=== PATIENT | female | born 1945 | race Caucasian/White ===

== ENCOUNTER 2018-05-15 13:43 | Emergency (ER) | payer MEDICARE ==
--- NOTE | 2018-05-15 14:16 | ED Physician Documentation ---
PD HPI URI - Stated complaint Stated Complaint: COUGH/CHILLS/CONGESTION - Chief complaint Chief Complaint: General - History obtained from History obtained from: Patient - History of Present Illness Timing - onset: How many weeks ago (1) Timing duration: Weeks (1) Timing details: Gradual onset, Still present Associated symptoms: Fever, Nasal congestion, Productive cough, Chest pain, Dyspnea. No: Bilateral edema Contributing factors: Sick contact (Her had upper respiratory infection and diagnosed with pneumonia started on antibiotics just a couple of days ago. She has similar symptoms.). No: COPD / asthma Improves by: No: Medication (She is using Mucinex without any improvement.) Similar symptoms before: Has not had sx before Recently seen: Not recently seen Review of Systems Constitutional: reports: Fever, Chills Nose: reports: Congestion Throat: denies: Sore throat Cardiac: denies: Chest pain / pressure Respiratory: reports: Dyspnea, Cough, Wheezing GI: denies: Nausea, Vomiting, Diarrhea Skin: denies: Rash Musculoskeletal: denies: Extremity swelling PD PAST MEDICAL HISTORY - Past Medical History Cardiovascular: Congestive heart failure, Hypertension, High cholesterol Respiratory: Shortness of breath Endocrine/Autoimmune: Type 2 diabetes GI: None : None HEENT: None Psych: None Musculoskeletal: None Derm: None - Past Surgical History General: Cholecystectomy HEENT: Tonsil/Adenoidectomy - Present Medications Home Medications: Ambulatory Orders Medication Instructions Recorded Confirmed Insulin Glargine,Hum.rec.anlog 46 unit SQ ACHS 05/15/14 05/15/14 [Lantus Solostar] Levothyroxine [Synthroid] 0.137 mcg PO QDAC 05/15/14 05/15/14 Lisinopril 20 mg PO DAILY 05/15/14 05/15/14 Naproxen [Naprosyn] 250 mg PO PRN 05/15/14 05/15/14 Pravastatin Sodium 40 mg PO DAILY 05/15/14 05/15/14 Albuterol Sulf [Ventolin Hfa 1 - 2 puffs INH Q4HR PRN #1 inhaler 05/15/18 Inhaler] Benzonatate [Tessalon Perle] 100 mg PO TID PRN #30 capsule 05/15/18 Cephalexin [Keflex] 500 mg PO TID #21 capsule 05/15/18 Dexamethasone [Decadron] 4 mg PO DAILY #5 tablet 05/15/18 - Allergies Allergies/Adverse Reactions: Allergies Allergy/AdvReac Type Severity Reaction Status Date / Time loratadine [From Claritin] Allergy Hives Verified 05/15/18 14:31 Sulfa (Sulfonamide Allergy Rash Verified 05/15/18 14:31 Antibiotics) meperidine HCl * AdvReac Nausea Verified 05/15/18 14:31 [From Demerol] PD ED PE NORMAL - Vitals Vital signs reviewed: Yes - General General: Alert and oriented X 3, No acute distress, Well developed/nourished - HEENT HEENT: Ears normal, Moist mucous membranes, Pharynx benign - Neck Neck: Supple, no meningeal sign, No adenopathy - Cardiac Cardiac: RRR, No murmur - Respiratory Respiratory: Clear bilaterally - Abdomen Abdomen: Soft, Non tender - Derm Derm: Normal color, Warm and dry - Extremities Extremities: No edema, No calf tenderness / cord - Neuro Neuro: Alert and oriented X 3, No motor deficit, Normal speech Results - Vitals Vitals: Vital Signs - 24 hr 05/15/18 05/15/18 13:50 15:09 Temperature 36.2 C L 36.2 C L Heart Rate 65 57 L Respiratory 20 16 Rate Blood Pressure 176/60 H 148/63 H O2 Saturation 95 96 Oxygen O2 Source Room air - Rads (name of study) chest xray Radiology: Prelim report reviewed (no infiltrates; has peribronchial cuffing c/w bronchitis. ), EMP read contemporaneously PD MEDICAL DECISION MAKING - ED course Complexity details: reviewed results, considered differential, d/w patient Departure - Departure Disposition: 01 Home, Self Care Clinical Impression: Lower respiratory infection (e.g., bronchitis, pneumonia, pneumonitis, pulmonitis) Condition: Stable Record reviewed to determine appropriate education?: Yes Instructions: ED Upper Resp Infec Abx Tx Follow-Up: Jackie Hays PA [Primary Care Provider] - Prescriptions: Albuterol Sulf [Ventolin Hfa Inhaler] 1 - 2 puffs INH Q4HR PRN #1 inhaler PRN Reason: Shortness Of Air/Wheezing Benzonatate [Tessalon Perle] 100 mg PO TID PRN #30 capsule PRN Reason: Cough Cephalexin [Keflex] 500 mg PO TID #21 capsule Dexamethasone [Decadron] 4 mg PO DAILY #5 tablet Comments: Stay well-hydrated. Use albuterol inhaler 2-3 puffs 4 times a day for the next 7-10 days. Add Tessalon if needed for cough. This may likely be viral or at least initially is but concern for some bacterial component now. Add cephalexin 3 times a day for a week for that. Recheck if not improving over the next few days. If you are not improving well in the next couple of days you could also consider adding Decadron steroid for inflammation of the airways. This may elevate your sugars more than would like and so do not start it initially but see how you do after a few days with the other medicines and add it if not improved well. Discharge Date/Time: 05/15/18 15:14
--- NOTE | 2018-05-15 14:29 | XRAY Report ---
Reason: cough Procedure Date: 05/15/2018 Accession Number: [id number] / [id number] Procedure: XR - Chest 2 View X-Ray CPT Code: 08684 FULL RESULT: EXAM: CHEST RADIOGRAPHY EXAM DATE: 05/15/2018 02:20 PM. CLINICAL HISTORY: Cough. COMPARISON: None. TECHNIQUE: 2 views. FINDINGS: Lungs/Pleura: Patchy regions of peripheral reticular opacities present in the right mid chest and lateral left lower chest, possibly chronic scarring. No convincing acute consolidation, effusions or edema. Mild perihilar bronchial wall thickening present. Mild bilateral pleural thickening about the lateral chest wall noted. Mediastinum: Heart and mediastinal contours are unremarkable. Other: None. IMPRESSION: 1. Perihilar bronchial wall thickening could be acute or chronic and secondary to reactive airways disease, viral pneumonia or other bronchitis. 2. Right mid chest and left basilar reticular opacities most suggestive of chronic scarring. 3. No focal consolidation. RADIA
[2018-05-15] MEDS ORDERED: cephALEXin 250 MG CAPSULE PO STA (14:51)
[2018-05-15] MEDS ORDERED: BENZONATATE 100 MG CAPSULE PO STA (14:51)
[2018-05-15 15:12] VITALS: BP 148/63
== END 2018-05-15 15:14 | disposition home or self-care (01) ==
LOC: ED 13:43
DX: J22 Unspecified acute lower respiratory infection (principal); I11.0 Hypertensive heart disease with heart failure; I50.9 Heart failure, unspecified; E11.9 Type 2 diabetes mellitus without complications; Z79.4 Long term (current) use of insulin
CPT/HCPCS: 71046; 99283; A9270

== ENCOUNTER 2021-06-18 10:05 | Outpatient (CLI) | payer MEDICARE ==
[2021-06-18 15:24] LABS: THYROID STIMULATING HORMONE 1.53 uIU/mL (0.34-5.60)
== END 2021-06-18 10:06 | disposition home or self-care (01) ==
LOC: LAB.S 10:05
PROVIDERS: ATTEND Nurse Practitioner Family
DX: E03.9 Hypothyroidism, unspecified (principal)
CPT/HCPCS: 36415; 84443

== ENCOUNTER 2023-01-25 08:44 | Outpatient (CLI) | payer MEDICARE ==
--- NOTE | 2023-01-25 12:00 | XRAY Report ---
PROCEDURE: Lumbar Spine 2 View INDICATIONS: SCIATICA, RIGHT SIDE TECHNIQUE: 3 views of the lumbar spine were acquired. COMPARISON: None. FINDINGS: Bones: 5 [id number] vertebrae are present. Diffusely decreased osseous mineralization. Levocurv ature of the lumbar spine. Grade 1 anterolisthesis of L4 on L5. There are multilevel degenerative elsie nges of the lumbar spine with facet arthropathy and disc height loss with degenerative endplate soria es and marginal spurring. No vertebral body compression fractures. No suspicious bony lesions. Soft tissues: Overlying bowel gas pattern is normal. No suspicious soft tissue calcifications. Ath erosclerotic vascular calcifications. Right upper quadrant surgical clips. IMPRESSION: Multilevel degenerative changes of the lumbar spine. Diffusely decreased osseous mineral ization. Reviewed by: Clovis Higginbotham MD on 01/25/2023 11:59 AM PST Approved by: Clovis Higginbotham MD on 01/25/2023 11:59 AM PST Station ID: [id number]
== END 2023-01-25 08:45 | disposition home or self-care (01) ==
LOC: DI.S 08:44
PROVIDERS: ATTEND Nurse Practitioner Family
DX: M54.31 Sciatica, right side (principal); M47.816 Spondylosis without myelopathy or radiculopathy, lumbar region; M85.88 Other specified disorders of bone density and structure, other site

== ENCOUNTER 2023-02-01 17:42 | Outpatient (CLI) | payer MEDICARE | END 2023-02-01 23:59 | disposition EMS.NT | LOC: EMS 17:42 | DX: S61.412A Laceration without foreign body of left hand, initial encounter (principal); W26.8XXA Contact with other sharp object(s), not elsewhere classified, initial encounter ==

== ENCOUNTER 2023-02-01 18:37 | Emergency (ER) | payer MEDICARE ==
[2023-02-01] MEDS ORDERED: BUFFERED LIDOCAINE 10 ML SYRINGE SUBQ STA (20:11)
--- NOTE | 2023-02-01 21:00 | ED Physician Documentation ---
PD HPI UPPER EXT INJURY - Stated complaint Stated Complaint: LT HAND LAC - Chief complaint Chief Complaint: Laceration - History obtained from History obtained from: Patient - History of Present Illness Location: Left, Hand Type of injury: Blunt / blow Where injury occurred: Home Timing - onset: Today Timing - duration: Minutes Timing - details: Abrupt onset, Still present Improved by: Rest, Dressing Worsened by: Moving, Palpating Associated symptoms: No: Weakness, Numbness, Tingling, Swelling, Discolored Contributing factors: No: Anticoagulated, Prior ortho surgery Similar symptoms before: Diagnosis (laceration) Recently seen: Not recently seen - Additonal information Additional information: Michelle Johnson is a 77-year-old female with a pacemaker in place who was at her chair getting ready to feed her dog leftovers when the dog made a sudden movement she moved her hand out of the way quickly and lacerated it on the dorsum of her hand from sharp edges underneath her tray. She has thin skin and comes in with a stellate laceration to the dorsum of the hand. She has been able to control bleeding with a dressing placed by EMS. Review of Systems Constitutional: denies: Fever Ears: denies: Ear pain Nose: denies: Congestion Throat: denies: Sore throat Respiratory: denies: Cough GI: denies: Vomiting Skin: reports: Laceration (s) PD PAST MEDICAL HISTORY - Past Medical History Past Medical History: Yes Cardiovascular: Congestive heart failure, Hypertension, High cholesterol Respiratory: Shortness of breath Neuro: None Endocrine/Autoimmune: Type 2 diabetes GI: None [employer] MET[employer] FITTER: None : None HEENT: None Psych: None Musculoskeletal: None Derm: None - Past Surgical History Past Surgical History: Yes General: Cholecystectomy HEENT: Tonsil/Adenoidectomy - Present Medications Home Medications: Ambulatory Orders Medication Instructions Recorded Confirmed Insulin Glargine,Hum.rec.anlog 46 unit SQ ACHS 05/15/14 05/15/14 [Lantus Solostar] Levothyroxine [Synthroid] 0.137 mcg PO QDAC 05/15/14 05/15/14 Lisinopril 20 mg PO DAILY 05/15/14 05/15/14 Naproxen [Naprosyn] 250 mg PO PRN 05/15/14 05/15/14 Pravastatin Sodium 40 mg PO DAILY 05/15/14 05/15/14 Albuterol Sulf [Ventolin Hfa 1 - 2 puffs INH Q4HR PRN #1 inhaler 05/15/18 Inhaler] Benzonatate [Tessalon Perle] 100 mg PO TID PRN #30 capsule 05/15/18 cephALEXin [Keflex] 500 mg PO TID #21 capsule 05/15/18 dexAMETHasone [Decadron] 4 mg PO DAILY #5 tablet 05/15/18 - Allergies Allergies/Adverse Reactions: Allergies Allergy/AdvReac Type Severity Reaction Status Date / Time loratadine [From Claritin] Allergy Hives Verified 02/01/23 18:45 Sulfa (Sulfonamide Allergy Rash Verified 02/01/23 18:45 Antibiotics) meperidine HCl * AdvReac Nausea Verified 02/01/23 18:45 [From Demerol] - Social History Does the pt smoke?: No Smoking Status: Never smoker Does the pt drink ETOH?: No Does the pt have substance abuse?: No - Immunizations Immunizations are current?: Yes - POLST Patient has POLST: No PD ED PE NORMAL - Vitals Vital signs reviewed: Yes (hypertensive ) - General General: Alert and oriented X 3, No acute distress, Well developed/nourished - HEENT HEENT: Atraumatic, PERRL, EOMI - Respiratory Respiratory: No respiratory distress - Derm Derm: Normal color, Warm and dry, No rash - Extremities Extremities: No deformity, No edema, Other (Over the dorsum of the hand is a stellate laceration approximately 7 cm total opposable skin there is no foreign material in the wound there are multiple flaps.) - Neuro Neuro: Alert and oriented X 3, design chief 2-12 intact, No motor deficit, No sensory deficit, Normal speech Eye Opening: Spontaneous Motor: Obeys Commands Verbal: Oriented GCS Score: 15 - Psych Psych: Normal mood, Normal affect Results - Vitals Vitals: Vital Signs - 24 hr 02/01/23 02/01/23 18:45 21:26 Temperature 36.6 C 36.1 C L Heart Rate 88 59 L Respiratory 18 16 Rate Blood Pressure 160/60 H 133/100 H O2 Saturation 95 96 Oxygen O2 Source Room air Procedures - Laceration (location) L hand Length in cm: 7 Wound type: Stellate, Irregular, Flap, Into subcut fat, Clean Neurovascular status: Sensory intact, Motor intact, Vascular intact Tendon involvement: Tendon intact Anesthesia: Lidocaine 1% Wound preparation: Hibiclens, Irrigated copiously NS, Wound explored, To the base, Multiple flaps aligned Skin layer closure: Nylon, Dermabond, Interrupted, Size #-0 - enter number (5-0) Other: Patient tolerated well, No complications, Neurovascular intact, Dressing applied, Tetanus booster given PD Medical Decision Making - ED course Complexity details: considered differential, d/w patient ED course: 77-year-old female with a laceration of the dorsum of the hand with thin skin has multiple flaps to a stellate laceration and she is sutured and glued. Departure - Departure Disposition: 01 Home, Self Care Clinical Impression: Laceration of hand Qualifiers: Encounter type: initial encounter Foreign body presence: without foreign body Laterality: left Qualified Code(s): S61.412A - Laceration without foreign body of left hand, initial encounter Condition: Stable Instructions: ED Laceration Hand Follow-Up: MOHINDER DENIS ARNP [Primary Care Provider] - Comments: Michelle, today it looks like you have a laceration to the thin skin of the dorsum of your left hand and this has been sutured and glued. The sutures will need to be removed in about 7 to 10 days. Discharge Date/Time: 02/01/23 21:30
[2023-02-01] MEDS ORDERED: TETANUS/DIPHTHERIA/PERTUSSIS 0.5 ML SYRINGE IM ONE (21:03)
[2023-02-01 21:29] VITALS: BP 133/100; O2SAT 96
== END 2023-02-01 21:30 | disposition home or self-care (01) ==
LOC: ED 18:37
DX: S61.412A Laceration without foreign body of left hand, initial encounter (principal); W26.9XXA Contact with unspecified sharp object(s), initial encounter; E11.9 Type 2 diabetes mellitus without complications; Z79.4 Long term (current) use of insulin; I10 Essential (primary) hypertension; Z23 Encounter for immunization
CPT/HCPCS: 12002; 90471; 99282

== ENCOUNTER 2023-02-04 08:00 | Outpatient (CLI) | payer MEDICARE ==
--- NOTE | 2023-02-04 13:47 | XRAY Report ---
PROCEDURE: Lumbar Spine 2 View INDICATIONS: RIGHT SIDE SCIATICA TECHNIQUE: 3 views of the lumbar spine were acquired. COMPARISON: 01/25/2023 FINDINGS: Bones: 5 [id number] vertebrae are present. Mild levoscoliosis of lumbar spine with the apex at the L3-4 level. Grade 1 anterolisthesis L4-5. Trace retrolisthesis L1-2. L5-S1 facet arthropathy. No vertebral body compression fractures. No suspicious bony lesions. Soft tissues: Overlying bowel gas pattern is normal. No suspicious soft tissue calcifications. Hea vy abdominal aortic calcifications. Surgical clips in the gallbladder fossa. 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 IMPRESSION: 1. No change compared to the recent prior exam. 2. Mild spondylolisthesis at L4-5 and L1-2. Reviewed by: Molly Castillo MD on 02/04/2023 1:46 PM PST Approved by: Molly Castillo MD on 02/04/2023 1:46 PM PST Station ID: [id number]
--- NOTE | 2023-02-04 13:50 | XRAY Report ---
PROCEDURE: Hand 3 View BILAT INDICATIONS: XRAY TECHNIQUE: 3 views of the hand(s) acquired. COMPARISON: None. FINDINGS: Bones: There is severe joint space loss, marginal spurring and articular surface irregularity involv ing the right first through third DIP joints, and the left second through fourth DIP joints. Moderate polyarticular joint space loss elsewhere without marginal spurs or erosions. Minimal degenerative ch anges at the first CMC joints. Soft tissues: No suspicious soft tissue calcifications or masses. IMPRESSION: 1. Mixed arthritic changes bilaterally. 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 Correlate clinically. Reviewed by: Molly Castillo MD on 02/04/2023 1:49 PM PST Approved by: Molly Castillo MD on 02/04/2023 1:49 PM PST Station ID: [id number]
== END 2023-02-04 23:59 | disposition home or self-care (01) ==
LOC: DI.S 08:00
PROVIDERS: ATTEND Nurse Practitioner Family
DX: M54.31 Sciatica, right side (principal); M19.042 Primary osteoarthritis, left hand; M19.041 Primary osteoarthritis, right hand; M43.16 Spondylolisthesis, lumbar region

== ENCOUNTER 2023-03-15 10:44 | Outpatient (CLI) | payer MEDICARE ==
--- NOTE | 2023-03-15 23:35 | DEXA Report ---
PROCEDURE: Dexa Spine and/or Hip INDICATIONS: SCREENING FOR OSTEOPOROSIS TECHNIQUE: Dual energy x-ray absorptiometry (DXA) was performed on a blogfoster System. Regions measur ed are the AP Spine, femoral neck, and if needed forearm. COMPARISON: None FINDINGS: Lumbar Spine: Bone Mineral Density 0.894 g/cm/cm,T score -2.4. Left Femoral Neck: Bone Mineral Density 0.510 g/cm/cm, T score -3.8. Left Hip: Bone Mineral Density 0.574 g/cm/cm,T score -3.4. (T score greater or equal to -1.0: NORMAL) (T score from -1.1 to -2.4: OSTEOPENIA) (T score less than or equal to -2.5 to: OSTEOPOROSIS) Impression: By WHO criteria, this patient has osteoporosis. Patients with diagnosis of osteoporosis or osteopenia should have regular bone mineral density assess ment. For those eligible for Medicare, routine testing is allowed once every 2 years. Testing frequ ency can be increased for patients who have rapidly progressing disease or for those who are receivin g medical therapy to restore bone mass. Reviewed by: Lenard Vazquez MD on 03/15/2023 11:34 PM PST Approved by: Lenard Vazquez MD on 03/15/2023 11:34 PM PST Station ID: [id number]
== END 2023-03-15 10:45 | disposition home or self-care (01) ==
LOC: DI 10:44
PROVIDERS: ATTEND Nurse Practitioner Family
DX: Z13.820 Encounter for screening for osteoporosis (principal); M81.0 Age-related osteoporosis without current pathological fracture